=== PATIENT | male | born 1945 | race Caucasian/White ===

== ENCOUNTER 2017-05-28 07:53 | Day surgery (SDC) | payer MEDICARE, OTHER ==
[2016-01-05 14:54] VITALS: BP 111/44
[2017-05-28] MEDS ORDERED: PROPOFOL 500 MG/50 ML VIAL IV ONE (08:00)
[2017-05-28] MEDS ORDERED: LACTATED RINGERS 1,000 ML IV.SOLN IV ONE (08:00)
[2017-05-28] MEDS ORDERED: SALINE FLUSH 10 ML DISP.SYRIN IVF ONE (08:00)
--- NOTE | 2017-05-29 14:24 | GI Report ---
REFERRING PHYSICIAN: Dr. Barry Carmichael STUDENT SPECIALIST: Fransico Leal MD PROCEDURE MEDICATION: Propofol as per anesthesia. INDICATIONS: This 71-year-old man has a number of health issues including central obesity, CAD, diabetic, chronic smoker, and COPD who had polyps on his last colonoscopy about [address] oDwning. His stools are irregular but denies bleeding. PROCEDURE PERFORMED: Colonoscopy with biopsy and polypectomy. PROCEDURE: An Olympus video colonoscope was advanced through the rectum. He does have some diverticular disease of the sigmoid and descending colon and an atonic redundant colon, though we were able to finally reach the cecum. The appendiceal orifice and terminal ileum looked normal. In the mid-ascending colon, the patient had like a 2 to 3 mm flat polyp removed in 2 biopsy pieces. The main part of the transverse colon is redundant but no additional lesions noted. Descending colon and sigmoid particularly with diverticular disease. Retroflexion of the rectum was normal. Patient tolerated the procedure well. FINDINGS: 1. Ascending colon polyp removed. He had one there 12 years ago. 2. Diverticular disease of the colon. RECOMMENDATIONS: 1. Would increase fiber in the diet. 2. Get on a diabetic diet, as weight loss would be beneficial. 3. Recommended strongly he needs to discontinue tobacco usage. 4. Follow up with Dr. Carmichael. 5. Pending the pathology on the polyp and biopsies, consider re-looking at his colon within 5 years. cc: Dr. Barry GILLESPIE
== END 2017-05-28 07:54 ==
LOC: OPSURG 07:53
PROVIDERS: ATTEND Internal Medicine Gastroenterology
DX: K63.5 Polyp of colon (principal); D12.4 Benign neoplasm of descending colon; K57.30 Diverticulosis of large intestine without perforation or abscess without bleeding; K59.8 Other specified functional intestinal disorders; E66.8 Other obesity; F17.210 Nicotine dependence, cigarettes, uncomplicated; I25.10 Atherosclerotic heart disease of native coronary artery without angina pectoris; J44.9 Chronic obstructive pulmonary disease, unspecified
CPT/HCPCS: 88305; J2704; J7120; 45380; S1016

== ENCOUNTER 2017-06-25 14:47 | Outpatient (CLI) | payer MEDICARE, OTHER ==
[2016-01-05 14:54] VITALS: BP 111/44
[2017-06-25 15:57] LABS: eGFR (African) > 60; eGFR (Non-African) 53
== END 2017-06-25 14:50 ==
LOC: LAB 14:47
PROVIDERS: ATTEND Internal Medicine
DX: E11.65 Type 2 diabetes mellitus with hyperglycemia (principal)
CPT/HCPCS: 36415; 80053; 83036

== ENCOUNTER 2017-08-03 14:42 | Emergency (ER) | payer MEDICARE, OTHER ==
--- NOTE | 2017-08-03 14:57 | ED Physician Documentation ---
Lower Extremity Injury - HISTORIAN Historian: patient - HPI Stated Complaint: right knee pain x 2 weeks Chief Complaint: Lower Extremity Problem Onset: other (3 weeks ) Where: home Severity: moderate (after he had some issue with needing to crawl to get up off the floor ) Context: other (he had to crawl on h) Associated Symptoms:: denies: numbness distally, swelling, unable to bear weight (can bear weight but with increased pain ) Modifying Factors:: pain on movement - ROS CONST: no problems CVS/RESP: none (HTN, prostate, hyperlidemia, diabetes, ) - PAST HX Past History: other (HTN, hyperlipidemia, DM, bladder ) Immunizations: referred to PCP Allergies/Adverse Reactions: Allergies Allergy/AdvReac Type Severity Reaction Status Date / Time No Known Allergies Allergy Verified 08/03/17 15:05 Home Medications: Ambulatory Orders Medication Instructions Recorded Finasteride [Proscar] 5 mg PO HS 08/03/17 Insulin Glargine,Hum.rec.anlog 25 unit SQ DAILY 08/03/17 [Lantus Solostar] Pioglitazone HCl [Pioglitazone HCl] 30 mg PO DAILY 08/03/17 Verapamil HCl [Calan] 240 mg PO DAILY 08/03/17 - SOCIAL HX Smoking History: non-smoker Alcohol Use: none Drug Use: none - FAMILY HX Family History: none - VITAL SIGNS Vital Signs: Vital Signs Temp Pulse Resp BP Pulse Ox 97.1 F L 88 18 95/53 95 08/03/17 14:45 08/03/17 14:45 08/03/17 14:45 08/03/17 14:45 08/03/17 14:45 - REVIEWED ASSESSMENTS Nursing Assessment Reviewed: Yes Vitals Reviewed: Yes ED Results Lab/Radiology - Radiology Radiology Impressions: Examination: Plain film knee History: Knee discomfort Findings: 3 views of the knee demonstrates tibial spine spurring. Minimal patellar spurring. Mild medial joint space narrowing. No fracture. No dislocation. No joint effusion. Posterior vascular calcifications. Scattered soft tissues surgical clips. Impression: Degenerative changes. No acute osseous abnormality. Electronically signed on Aug 03, 2017 4:10:29 PM [employer] by: Fidel Edouard - Orders Orders: ED Orders Category Date Time Status Abe Wrap Affected Extremity 1T Care 08/03/17 16:12 Active KNEE 3 VIEWS [RAD] Stat Exams 11/24/17 Ordered Lower Extremities Injury Phy - Physical Exam General Appearance: no acute distress Legs: N/A: non-tender, normal inspection, normal range of motion, no evidence of injury, abrasions, bone tenderness, deformity, ecchymosis, joint effusion, limited range of motion, nodules, pain, soft tissue tenderness, swelling Knees: right: normal inspection, bone tenderness, pain (patella lateral with palpation ), soft tissue tenderness, bilateral: normal range of motion, no evidence of injury, N/A: non-tender, deformity, ecchymosis, joint effusion, nodules, swelling Ankle: N/A: non-tender, normal inspection, normal range of motion, no evidence of injury, abrasions/laceration, bone tenderness, deformity, ecchymosis, joint effusion, limited range of motion, nodules, pain, soft tissue tenderness, swelling Gait: limited by pain Neuro/Vascular/Tendon: no vascular compromise Neck/Back: nml inspection, non-tender Resp/CVS: chest non-tender, breath sounds nml, heart sounds nml, no resp. distress Abdomen: non-tender Discharge Clincal Impression: Knee pain Qualifiers: Chronicity: acute Laterality: right Qualified Code(s): M25.561 - Pain in right knee Referrals: Barry Carmichael MD [Primary Care Provider] - 2 Days Condition: Stable Disposition: 01 HOME, SELF-CARE Decision to Admit: NO Date of Decison to Admit: 08/03/17 Decision Time: 16:11
[2017-08-03 16:22] VITALS: BP 108/68
--- NOTE | 2017-08-03 16:30 | Diagnostic Imaging Report ---
LUIS FARIAS [facility] [id number] [facility] [address] [id number] Report Submission Date: Aug 03, 2017 4:10:29 PM FNP Patient Study Name: TAMIKA CORREIA Date: Aug 03, 2017 3:33:10 PM FNP Modality Type: CR Gender: M Description: LOWER EXTREMITY : 43 Institution: [facility] Physician: LUIS FARIAS Examination: Plain film knee History: Knee discomfort Findings: 3 views of the knee demonstrates tibial spine spurring. Minimal patellar spurring. Mild medial joint space narrowing. No fracture. No dislocation. No joint effusion. Posterior vascular calcifications. Scattered soft tissues surgical clips. Impression: Degenerative changes. No acute osseous abnormality. Electronically signed on Aug 03, 2017 4:10:29 PM FNP by: Fidel GILLESPIE
== END 2017-08-03 16:20 | disposition home or self-care (01) ==
LOC: ED 14:42
DX: M25.561 Pain in right knee (principal)
CPT/HCPCS: 73562; 99283

== ENCOUNTER 2018-11-25 15:45 | Outpatient (CLI) | payer MEDICARE, OTHER ==
[2018-07-18 16:04] VITALS: BP 126/74
[2018-11-25 21:09] LABS: eGFR (Non-African) 57
== END 2018-11-25 15:47 ==
LOC: LABRHC 15:45
PROVIDERS: ATTEND Family Medicine
DX: R60.9 Edema, unspecified (principal)
CPT/HCPCS: 36415; 80048

== ENCOUNTER 2018-12-22 16:17 | Outpatient (CLI) | payer MEDICARE, OTHER ==
[2018-12-20 08:33] VITALS: BP 129/55
== END 2018-12-22 16:18 ==
LOC: LAB 16:17
PROVIDERS: ATTEND Family Medicine
DX: D64.9 Anemia, unspecified (principal); K92.2 Gastrointestinal hemorrhage, unspecified
CPT/HCPCS: 82270

== ENCOUNTER 2019-01-27 09:00 | Outpatient (CLI) | payer MEDICARE, OTHER ==
[2019-01-11 16:52] VITALS: BP 109/56
[2019-01-27 09:55] LABS: EOSINOPHILS % 3 % (0-7); MONOCYTES % 3 % (0-11); SEGMENTED NEUTROPHILS % 68 % (39-79)
[2019-01-27 09:56] LABS: ANISOCYTOSIS 2+ (NEGATIVE); HYPOCHROMASIA 2+ (NEGATIVE); OVALOCYTES 1+ (NEGATIVE)
== END 2019-01-27 09:03 ==
LOC: LAB 09:00
PROVIDERS: ATTEND Family Medicine
DX: D50.0 Iron deficiency anemia secondary to blood loss (chronic) (principal)
CPT/HCPCS: 36415; 85025

== ENCOUNTER 2019-03-10 13:42 | Outpatient (CLI) | payer MEDICARE, OTHER ==
[2019-01-11 16:52] VITALS: BP 109/56
[2019-03-10 14:26] LABS: HDL 35 mg/dL (>40); eGFR (Non-African) > 60
[2019-03-10 15:15] LABS: ANISOCYTOSIS 3+ (NEGATIVE); BASOPHILS % 2 % (0-2); HYPOCHROMASIA 2+ (NEGATIVE); OVALOCYTES 1+ (NEGATIVE); SEGMENTED NEUTROPHILS % 63 % (39-79); STOMATOCYTES 1+ (NEGATIVE); TEAR DROP CELLS 1+ (NEGATIVE)
== END 2019-03-10 13:44 ==
LOC: LAB 13:42
PROVIDERS: ATTEND Family Medicine
DX: E11.649 Type 2 diabetes mellitus with hypoglycemia without coma (principal); Z79.4 Long term (current) use of insulin
CPT/HCPCS: 36415; 80053; 80061; 85025